=== PATIENT | female | born 1935 | race Caucasian/White ===

== ENCOUNTER → 2016-06-26 | Day surgery (SDC) | payer OTHER ==
[~2016-06-26] MED LIST: THROMBIN (RECOMBINANT) 5,000 UNIT VIAL TP ONE
--- NOTE | 2016-06-26 17:17 | MA ---
Right diagnostic mammogram dated today INDICATION: Evaluate clip deployment and residual microcalcifications following stereotactic right br east biopsy. TECHNIQUE: True lateral and exaggerated lateral CC views right breast. COMPARISON: Diagnostic mammograms dated May 22, 2016 and screening mammograms dated May, September 2014, June 2012, and June 2011. FINDINGS: The microcalcifications in the outer right breast 9 at 10:00 position have been completely removed and a dumbbell shaped biopsy clip resides in the biopsy cavity. No hematoma. IMPRESSION: Successful stereotactic biopsy of mildly suspicious microcalcifications outer right [place] tCecelia Strickland clip appointment. PLAN: Pending histologic results.
--- NOTE | 2016-06-26 17:17 | MA ---
Stereotactic Core Biopsy Right Breast 06/26/2016 Indication: Suspicious microcalcifications outer right breast 9 to 10 o'clock position. Crosscutting Measure #226: Current tobacco user: No. Technique: Following informed consent, the patient was placed prone on the stereotactic core biopsy t able and the breast was suspended through the open space in the table. The microcalcifications were l ocalized from lateral to medial approach. The skin was then prepped in sterile fashion. The skin and deep soft tissues were numbed with 1% lidocaine and bupivacaine. A small skin ervin was placed on the skin surface through which the 9-gauge [employer] vacuum-assisted core biopsy needle was advanced to the a ppropriate depth. Following confirmation of the microcalcifications adjacent to the needle, 12 core b iopsy samples were obtained. Specimen radiograph confirmed microcalcifications in the sample. A [employer] titanium clip was then deployed in the biopsy bed. Impression: 1. Successful stereotactic core biopsy of microcalcifications right breast. 2. Specimen radiograph confirms microcalcifications in the sample. 3. Successful deployment of titanium clip in the biopsy bed. Plan: Postbiopsy mammograms.
== END | disposition home or self-care (01) ==
LOC: FIMAGING 08:29
PROVIDERS: ATTEND Family Medicine
PROC: 0HBT3ZX Excision of Right Breast, Percutaneous Approach, Diagnostic (ICD-10-PCS; principal; 2016-06-26)
DX: R92.0 Mammographic microcalcification found on diagnostic imaging of breast (principal); N60.11 Diffuse cystic mastopathy of right breast
CPT/HCPCS: G0206

== ENCOUNTER → 2017-06-19 | Outpatient (CLI) | payer OTHER | LOC: FIMAGING 12:27 | PROVIDERS: ATTEND Family Medicine | DX: Z12.31 Encounter for screening mammogram for malignant neoplasm of breast (principal) ==